=== PATIENT | female | born 1975 | race African-American/Black ===

== ENCOUNTER 2021-03-18 22:50 | Observation (INO) | payer MEDICARE, MEDICAID ==
[~2021-03-18] VITALS: Ht 162.6 cm; Wt 92.5 kg
[2021-03-18] MEDS ORDERED: PNV1TABL76 PO (23:12)
[2021-03-19] MEDS ORDERED: KETOROLAC 30MG/ML VIAL IM SCH (01:45)
[2021-03-19 01:52] VITALS: BP 114/67
[2021-03-19 02:05] LABS: BASOPHILS % 0.2 % (0.0-2.0); EOSINOPHILS % 0.7 % (0.0-5.0); HEMATOCRIT. 33.3 % (36.0-48.0); HEMOGLOBIN. 11.4 g/dL (12.0-16.0); LYMPHOCYTES % 14.4 % (20.0-50.0); MEAN CORPUSCULAR HEMOGLOBIN 29.8 pg (28.0-32.0); MEAN CORPUSCULAR VOLUME 87.3 fL (81.0-99.0); MEAN PLATELET VOLUME 8.4 fl (7.4-10.4); MONOCYTES % 10.9 % (2.0-8.0); NEUTROPHILS % 73.8 % (40.0-76.0); PLATELET 228 x1000/uL (130-400); RED BLOOD CELL COUNT 3.82 mill/uL (4.2-5.4); RED CELL DISTRIBUTION WIDTH 14.9 % (11.6-14.6)
== END 2021-03-19 03:20 | disposition home or self-care (01) ==
LOC: 8 EST LDRP 22:50
PROVIDERS: ADMIT Obstetrics & Gynecology; ATTEND Obstetrics & Gynecology
DX: O26.893 Other specified pregnancy related conditions, third trimester (principal); R10.11 Right upper quadrant pain; Z3A.29 29 weeks gestation of pregnancy
CPT/HCPCS: 36415; 59025; 76705; 76805; 76818; 85025; 96372; G0378; J1885; 99281

== ENCOUNTER 2021-06-13 01:08 | Inpatient (IN) | payer MEDICARE, MEDICAID ==
[~2021-06-13] VITALS: Ht 180.3 cm; Wt 88.0 kg
[~2021-06-13 01:08] MED LIST: PNV1TABL76 PO
[2021-06-13 01:58] LABS: BASOPHILS % 0.7 % (0.0-2.0); EOSINOPHILS % 1.7 % (0.0-5.0); HEMATOCRIT. 42.1 % (36.0-48.0); HEMOGLOBIN. 13.7 g/dL (12.0-16.0); LYMPHOCYTES % 20.5 % (20.0-50.0); MEAN CORPUSCULAR HEMOGLOBIN 28.6 pg (28.0-32.0); MEAN CORPUSCULAR VOLUME 87.8 fL (81.0-99.0); NEUTROPHILS % 66.1 % (40.0-76.0); PLATELET 393 x1000/uL (130-400); RED CELL DISTRIBUTION WIDTH 15.1 % (11.6-14.6)
[2021-06-13 02:01] LABS: CHLORIDE 110 mEq/L (98-107)
[2021-06-13 02:04] LABS: PROTHROMBIN TIME 10.4 sec (9.6-11.0)
[2021-06-13 02:07] LABS: ETHANOL BLOOD < 10 mg/dL
[2021-06-13 02:08] LABS: CLARITY URINE CLEAR (CLEAR); COLOR URINE YELLOW (YELLOW); KETONES URINE NEGATIVE (NEGATIVE); LDL CHOLESTEROL 149 mg/dL (5-100); LEUKOCYTE ESTERASE URINE TRACE (NEGATIVE); NITRITE URINE NEGATIVE (NEGATIVE); OCCULT BLOOD URINE NEGATIVE (NEGATIVE); PH URINE 7.5 (4.5-8.0); PROTEIN URINE NEGATIVE (NEGATIVE); SPECIFIC GRAVITY URINE 1.005 (1.005-1.030); UROBILINOGEN URINE 0.2 E.U./dL (0.2-1.0)
[2021-06-13 02:16] LABS: PHENCYCLIDINE URINE SCREEN NEGATIVE (NEGATIVE)
[2021-06-13 02:17] LABS: *AMPHETAMINES SCREEN URINE NEGATIVE (NEGATIVE); *BARBITURATES SCREEN URINE NEGATIVE (NEGATIVE); *BENZODIAZEPINES SCREEN URINE NEGATIVE (NEGATIVE); *COCAINE SCREEN URINE NEGATIVE (NEGATIVE); CANNABINOID URINE SCREEN NEGATIVE (NEGATIVE); METHADONE URINE SCREEN NEGATIVE (NEGATIVE); OPIATES URINE SCREEN NEGATIVE (NEGATIVE)
[2021-06-13] MEDS ORDERED: IOHEXOL-350 100 ML BOTTLE ONE (02:28)
[2021-06-13] MEDS ORDERED: ENALAPRIL 2.5MG/2ML VIAL 2ML IV ONE (02:45)
[2021-06-13] MEDS ORDERED: MORPHINE SULFATE 4 MG/ML CPJ (NOT FOR IM USE) IV ONE (03:00)
[2021-06-13] MEDS ORDERED: ONDANSETRON HCL 4MG/2ML INJ IV ONE (03:00)
[2021-06-13] MEDS ORDERED: MAGNESIUM 4 G PREMIX 100 ML IV ONE (06:30)
[2021-06-13] MEDS ORDERED: DOCUSATE SODIUM 100MG CAPSULE PO PRN (06:45)
[2021-06-13] MEDS ORDERED: NITROGLYCERIN 0.4MG TABLET SL SL PRN (06:45)
[2021-06-13] MEDS ORDERED: MAGNESIUM/ALUMINUM HYDROXIDE/SIMETHICONE 30ML UDC PO PRN (06:45)
[2021-06-13] MEDS ORDERED: ACETAMINOPHEN 325MG TABLET PO PRN (06:45)
[2021-06-13] MEDS ORDERED: GUAIFENESIN 200MG/10ML SUGAR FREE UDC PO PRN (06:45)
[2021-06-13] MEDS ORDERED: CLONIDINE 0.1MG TABLET PO PRN (06:45)
[2021-06-13] MEDS ORDERED: IPRATROPIUM/ALBUTEROL 0.5-3(2.5)MG/3ML NEB NEB PRN (06:45)
[2021-06-13] MEDS: KETOROLAC 15MG/ML VIAL IV PRN ×3 (07:25→22:55)
[2021-06-13] MEDS: BUTALBITAL/ACETAMINOPHEN/CAFFEINE 50/325/40MG TABLET PO PRN (07:26)
[2021-06-13] MEDS: ENOXAPARIN 40MG/0.4ML SYR SUBCUT SCH (09:19)
[2021-06-13] MEDS: AMLODIPINE 10MG TABLET PO SCH (09:19)
[2021-06-13] MEDS: FAMOTIDINE 20MG TABLET PO SCH ×2 (09:19→21:41)
[2021-06-13 11:30] VITALS: BP 146/95
[2021-06-13 11:35] VITALS: BP 146/93
[2021-06-13] MEDS: ACETAMINOPHEN 325MG TABLET PO PRN (12:10)
[2021-06-13 16:00] VITALS: BP 121/82
[2021-06-13 17:13] LABS: CREATINE KINASE 92 IU/L (26-192)
[2021-06-13 17:14] LABS: CREATINE KINASE MB FRACTION < 1.0 ng/mL (0.5-3.6)
[2021-06-13 20:00] VITALS: BP 125/68
[2021-06-13] MEDS: ZOLPIDEM TARTRATE 5MG TABLET PO PRN (22:54)
[2021-06-14] VITALS: BP 130/85
[2021-06-14 01:11] LABS: CREATINE KINASE 71 IU/L (26-192)
[2021-06-14 01:12] LABS: CREATINE KINASE MB FRACTION < 1.0 ng/mL (0.5-3.6)
[2021-06-14] MEDS ORDERED: CYCL5TAB PO (02:00)
[2021-06-14] MEDS ORDERED: LABE100T6 PO (02:00)
[2021-06-14 04:00] VITALS: BP 134/82
[2021-06-14] MEDS: KETOROLAC 15MG/ML VIAL IV PRN ×2 (06:25→22:29)
[2021-06-14 08:15] VITALS: BP 136/84
[2021-06-14] MEDS: FAMOTIDINE 20MG TABLET PO SCH ×2 (09:23→21:35)
[2021-06-14] MEDS: AMLODIPINE 10MG TABLET PO SCH (09:23)
[2021-06-14] MEDS: ENOXAPARIN 40MG/0.4ML SYR SUBCUT SCH (09:24)
[2021-06-14] MEDS: BUTALBITAL/ACETAMINOPHEN/CAFFEINE 50/325/40MG TABLET PO PRN ×2 (09:53→21:36)
[2021-06-14 12:11] VITALS: BP 127/83
[2021-06-14 16:00] VITALS: BP 135/89
[2021-06-14] MEDS ORDERED: NAPROXEN 375MG TABLET PO PRN (16:15)
[2021-06-14] MEDS: NAPROXEN 250MG TABLET PO PRN (18:00)
[2021-06-14 20:00] VITALS: BP 135/89
[2021-06-14] MEDS: SUMATRIPTAN SUCCINATE 25MG TABLET PO PRN (21:36)
[2021-06-15 00:29] VITALS: BP 146/94
[2021-06-15 04:00] VITALS: BP 128/86
[2021-06-15 07:56] VITALS: BP 121/77
[2021-06-15] MEDS: ENOXAPARIN 40MG/0.4ML SYR SUBCUT SCH (08:29)
[2021-06-15] MEDS: BUTALBITAL/ACETAMINOPHEN/CAFFEINE 50/325/40MG TABLET PO PRN ×2 (08:31→14:25)
[2021-06-15] MEDS: FAMOTIDINE 20MG TABLET PO SCH ×2 (08:31→20:35)
[2021-06-15] MEDS: AMLODIPINE 10MG TABLET PO SCH (08:31)
[2021-06-15 11:49] VITALS: BP 109/82
[2021-06-15 16:09] VITALS: BP 125/87
[2021-06-15] MEDS: MORPHINE SULFATE 2 MG/ML CPJ (NOT FOR IM USE) IV PRN ×2 (17:37→22:03)
[2021-06-15 20:00] VITALS: BP 124/75
[2021-06-15] MEDS: ATORVASTATIN CALCIUM 40MG TABLET PO SCH (20:35)
[2021-06-15] MEDS: VENLAFAXINE HCL 37.5MG TABLET PO SCH (20:36)
[2021-06-15] MEDS: ZOLPIDEM TARTRATE 5MG TABLET PO PRN (22:37)
[2021-06-15] MEDS ORDERED: NALOXONE HCL 0.4MG/ML VIAL IV PRN (22:45)
[2021-06-16] VITALS: BP 126/79
[2021-06-16 04:00] VITALS: BP 129/79
[2021-06-16] MEDS: MORPHINE SULFATE 2 MG/ML CPJ (NOT FOR IM USE) IV PRN ×2 (05:17→09:54)
[2021-06-16 08:00] VITALS: BP 107/71
[2021-06-16] MEDS: FAMOTIDINE 20MG TABLET PO SCH ×2 (09:50→20:15)
[2021-06-16] MEDS: VENLAFAXINE HCL 37.5MG TABLET PO SCH (09:50)
[2021-06-16] MEDS: AMLODIPINE 10MG TABLET PO SCH (09:52)
[2021-06-16] MEDS: SUMATRIPTAN SUCCINATE 25MG TABLET PO PRN (09:53)
[2021-06-16] MEDS: ENOXAPARIN 40MG/0.4ML SYR SUBCUT SCH (09:53)
[2021-06-16] MEDS: ONDANSETRON HCL 4MG/2ML INJ IV PRN ×2 (11:11→20:15)
[2021-06-16] MEDS: METHOCARBAMOL 500MG TABLET PO PRN ×2 (11:11→17:34)
[2021-06-16] MEDS ORDERED: METHYLPREDNISOLONE 4MG TABLET PO SCH (11:15)
[2021-06-16 12:00] VITALS: BP 110/70
[2021-06-16] MEDS ORDERED: METHYLPREDNISOLONE 4 MG PO SCH (13:00)
[2021-06-16] MEDS: GABAPENTIN 300MG CAPSULE PO SCH ×2 (13:37→22:56)
[2021-06-16 16:00] VITALS: BP 116/88
[2021-06-16] MEDS: HYDROCODONE/ACETAMINOPHEN 10/325MG TABLET PO PRN ×2 (17:34→22:56)
[2021-06-16 20:00] VITALS: BP 124/88
[2021-06-16] MEDS: ATORVASTATIN CALCIUM 40MG TABLET PO SCH (20:15)
[2021-06-17] VITALS: BP 123/86
[2021-06-17] MEDS: METHOCARBAMOL 500MG TABLET PO PRN ×2 (01:07→21:13)
[2021-06-17 04:00] VITALS: BP 126/80
[2021-06-17] MEDS: METHYLPREDNISOLONE 4 MG PO SCH ×3 (06:48→18:05)
[2021-06-17] MEDS: GABAPENTIN 300MG CAPSULE PO SCH ×3 (06:48→21:13)
[2021-06-17] MEDS: HYDROCODONE/ACETAMINOPHEN 10/325MG TABLET PO PRN (06:49)
[2021-06-17 08:54] VITALS: BP 116/83
[2021-06-17] MEDS: AMLODIPINE 10MG TABLET PO SCH (09:14)
[2021-06-17] MEDS: ENOXAPARIN 40MG/0.4ML SYR SUBCUT SCH (09:15)
[2021-06-17] MEDS: FAMOTIDINE 20MG TABLET PO SCH ×2 (09:15→21:13)
[2021-06-17] MEDS: VENLAFAXINE HCL 37.5MG TABLET PO SCH (09:15)
[2021-06-17] MEDS: MORPHINE SULFATE 2 MG/ML CPJ (NOT FOR IM USE) IV PRN ×2 (11:21→18:07)
[2021-06-17 12:41] VITALS: BP 111/81
[2021-06-17 15:58] VITALS: BP 110/67
[2021-06-17 20:00] VITALS: BP 128/79
[2021-06-17] MEDS ORDERED: METHYLPREDNISOLONE 4 MG PO SCH (21:00)
[2021-06-17] MEDS: ATORVASTATIN CALCIUM 40MG TABLET PO SCH (21:13)
[2021-06-18] VITALS (7 sets, daily range): BP systolic 108–141; BP diastolic 74–89
[2021-06-18] MEDS: HYDROCODONE/ACETAMINOPHEN 10/325MG TABLET PO PRN ×4 (00:12→23:24)
[2021-06-18] MEDS: METHOCARBAMOL 500MG TABLET PO PRN (05:24)
[2021-06-18] MEDS: GABAPENTIN 300MG CAPSULE PO SCH ×3 (05:24→21:52)
[2021-06-18] MEDS: METHYLPREDNISOLONE 4 MG PO SCH ×3 (07:37→18:09)
[2021-06-18] MEDS: AMLODIPINE 10MG TABLET PO SCH (08:50)
[2021-06-18] MEDS: ENOXAPARIN 40MG/0.4ML SYR SUBCUT SCH (08:51)
[2021-06-18] MEDS: FAMOTIDINE 20MG TABLET PO SCH ×2 (08:52→21:48)
[2021-06-18] MEDS: VENLAFAXINE HCL 37.5MG TABLET PO SCH (08:52)
[2021-06-18 10:52] LABS: CLARITY URINE CLEAR (CLEAR); COLOR URINE YELLOW (YELLOW); KETONES URINE NEGATIVE (NEGATIVE); LEUKOCYTE ESTERASE URINE 2+ (NEGATIVE); NITRITE URINE NEGATIVE (NEGATIVE); OCCULT BLOOD URINE NEGATIVE (NEGATIVE); PH URINE 6.5 (4.5-8.0); PROTEIN URINE NEGATIVE (NEGATIVE); SPECIFIC GRAVITY URINE 1.015 (1.005-1.030); UROBILINOGEN URINE 0.2 E.U./dL (0.2-1.0)
[2021-06-18] MEDS ORDERED: METHYLPREDNISOLONE 4 MG PO SCH (21:00)
[2021-06-18] MEDS: ATORVASTATIN CALCIUM 40MG TABLET PO SCH (21:48)
[2021-06-19] VITALS (7 sets, daily range): BP systolic 113–141; BP diastolic 77–98
[2021-06-19] MEDS: MORPHINE SULFATE 2 MG/ML CPJ (NOT FOR IM USE) IV PRN ×2 (05:32→14:23)
[2021-06-19] MEDS: GABAPENTIN 300MG CAPSULE PO SCH ×2 (05:32→14:22)
[2021-06-19] MEDS: METHYLPREDNISOLONE 4 MG PO SCH ×2 (07:12→14:22)
[2021-06-19] MEDS: FAMOTIDINE 20MG TABLET PO SCH ×2 (08:53→20:48)
[2021-06-19] MEDS: AMLODIPINE 10MG TABLET PO SCH (08:53)
[2021-06-19] MEDS: ENOXAPARIN 40MG/0.4ML SYR SUBCUT SCH (08:53)
[2021-06-19] MEDS: VENLAFAXINE HCL 37.5MG TABLET PO SCH (08:53)
[2021-06-19] MEDS: HYDROCODONE/ACETAMINOPHEN 10/325MG TABLET PO PRN ×3 (08:54→23:47)
[2021-06-19] MEDS: ATORVASTATIN CALCIUM 40MG TABLET PO SCH (20:48)
[2021-06-19] MEDS: ACETAMINOPHEN 325MG TABLET PO PRN (22:43)
[2021-06-20] VITALS: BP 127/84
[2021-06-20] MEDS: NAPROXEN 250MG TABLET PO PRN (03:57)
[2021-06-20 04:00] VITALS: BP 105/71
[2021-06-20 05:05] LABS: CHLORIDE 107 mEq/L (98-107)
[2021-06-20 05:10] LABS: BASOPHILS % 0.5 % (0.0-2.0); EOSINOPHILS % 1.1 % (0.0-5.0); HEMATOCRIT. 42.8 % (36.0-48.0); HEMOGLOBIN. 14.1 g/dL (12.0-16.0); LYMPHOCYTES % 25.6 % (20.0-50.0); MEAN CORPUSCULAR HEMOGLOBIN 28.8 pg (28.0-32.0); MEAN CORPUSCULAR VOLUME 87.4 fL (81.0-99.0); MEAN PLATELET VOLUME 8.3 fl (7.4-10.4); NEUTROPHILS % 59.8 % (40.0-76.0); PLATELET 367 x1000/uL (130-400); RED CELL DISTRIBUTION WIDTH 14.8 % (11.6-14.6)
[2021-06-20] MEDS: MORPHINE SULFATE 2 MG/ML CPJ (NOT FOR IM USE) IV PRN ×2 (06:36→12:58)
[2021-06-20 08:00] VITALS: BP_SYST 132; BP_SYST 137; BP_SYST 139; BP_DIAS 88; BP_DIAS 93; BP_DIAS 94
[2021-06-20] MEDS: FAMOTIDINE 20MG TABLET PO SCH (08:22)
[2021-06-20] MEDS: ENOXAPARIN 40MG/0.4ML SYR SUBCUT SCH (08:23)
[2021-06-20] MEDS: AMLODIPINE 10MG TABLET PO SCH (08:23)
[2021-06-20] MEDS: HYDROCODONE/ACETAMINOPHEN 10/325MG TABLET PO PRN ×2 (08:34→16:35)
[2021-06-20 12:00] VITALS: BP 119/78
[2021-06-20 16:01] VITALS: BP 105/77
[2021-06-20 16:35] VITALS: BP 105/77
== END 2021-06-20 18:38 | disposition home health service (06) | DRG 776 ==
LOC: ER 01:08 → 6WST 03:48 → EDBEDREQTM 03:52 → EDBEDREQ 03:52 → EDBEDREQSVC 03:52 → ENRESERV 08:39
PROVIDERS: ADMIT Hospitalist; ATTEND Hospitalist
PROC: 4A10X4Z Monitoring of Central Nervous Electrical Activity, External Approach (ICD-10-PCS; principal; 2021-06-15)
DX: O90.89 Other complications of the puerperium, not elsewhere classified (principal); E44.1 Mild protein-calorie malnutrition; G43.119 Migraine with aura, intractable, without status migrainosus; O25.3 Malnutrition in the puerperium; E78.5 Hyperlipidemia, unspecified; O13.5 Gestational [pregnancy-induced] hypertension without significant proteinuria, complicating the puerperium; M47.22 Other spondylosis with radiculopathy, cervical region; O99.345 Other mental disorders complicating the puerperium; M48.02 Spinal stenosis, cervical region; M50.10 Cervical disc disorder with radiculopathy, unspecified cervical region; F41.9 Anxiety disorder, unspecified; F32.9 Major depressive disorder, single episode, unspecified; Z82.49 Family history of ischemic heart disease and other diseases of the circulatory system; Z79.899 Other long term (current) drug therapy; Z88.5 Allergy status to narcotic agent; Z68.27 Body mass index [BMI] 27.0-27.9, adult; R25.1 Tremor, unspecified
CPT/HCPCS: 36415; 70496; 70498; 70551; 71045; 72141; 80048; 80053; 80305; 80320; 81003; 82550; 82553; 83721; 84484; 85025; 92523; 93005; 93970; 95816; 97162; 97166; 97530; 97535; 99291; C1893; J1650; J1885; J2270; J2405; J3475; J3490; J7509; Q9967; G0480